=== PATIENT | female | born 1980 | race Caucasian/White ===

== ENCOUNTER 2022-02-12 15:24 | Emergency (ER) | payer BC, OTHER ==
[~2022-02-12] VITALS: Ht 172.7 cm; Wt 99.8 kg
== END 2022-02-12 18:00 | disposition home or self-care (01) ==
LOC: FSED 15:27
DX: G44.209 Tension-type headache, unspecified, not intractable (principal); R07.9 Chest pain, unspecified; R10.31 Right lower quadrant pain
CPT/HCPCS: 70450; 72125; 74177; 80053; 82553; 84484; 85025; 85379; 93005; 99284